=== PATIENT | male | born 1980 | race Caucasian/White ===

== ENCOUNTER 2021-12-20 07:11 | Day surgery (SDC) | payer BC ==
[~2021-12-20] VITALS: Ht 170.2 cm; Wt 81.6 kg
[~2021-12-20 07:11] MED LIST: CEFAZOLIN SOD 2 GM in D5W 50 ML IV ONE
[2021-12-20] MEDS ORDERED: ONDANSETRON HCL 4 MG/2 ML VIAL IVP PRN ×2 (10:15→10:45)
[2021-12-20] MEDS ORDERED: MORPHINE 4 MG INJ. 4 MG/ML VIAL IVP PRN ×3 (10:15)
[2021-12-20] MEDS ORDERED: MEPERIDINE HCL/PF 25 MG/ML DISP.SYRIN IVP PRN (10:15)
[2021-12-20] MEDS ORDERED: METOCLOPRAMIDE HCL 10 MG/2 ML VIAL IVP PRN (10:15)
[2021-12-20] MEDS ORDERED: LR 1,000 ML IV.SOLN IV ONE (10:34)
[2021-12-20] MEDS ORDERED: ePHEDrine sulfate 50 MG/ML VIAL ONE (10:34)
[2021-12-20] MEDS ORDERED: NS 1000 ML IV.SOLN IV ONE (10:34)
[2021-12-20] MEDS ORDERED: GLYCOPYRROLATE 0.2 MG/ML VIAL ONE (10:34)
[2021-12-20] MEDS ORDERED: ROCURONIUM BROMIDE 10 MG/ML (ZEMURON) ONE (10:34)
[2021-12-20] MEDS ORDERED: PROPOFOL 200MG/ 20ML VIAL (DIPRIVAN) IV ONE (10:34)
[2021-12-20] MEDS ORDERED: fentaNYL CITRATE/PF 100 MCG/2 ML AMP ONE (10:34)
[2021-12-20] MEDS ORDERED: PHENYLEPHRINE HCL 10 MG/ML VIAL (NEOSYNEPHRINE) ONE (10:34)
[2021-12-20] MEDS ORDERED: MIDAZOLAM HCL 5 MG/ML VIAL (VERSED) IV ONE (10:34)
[2021-12-20] MEDS ORDERED: DEXAMETHASONE SOD PHOSPHATE 4 MG/ML VIAL ONE (10:34)
[2021-12-20] MEDS ORDERED: SEVOFLURANE 15 MIN GAS INH ONE (10:34)
[2021-12-20] MEDS ORDERED: ONDANSETRON HCL 4 MG/2 ML VIAL ONE (10:34)
[2021-12-20] MEDS ORDERED: ONDANSETRON 4 MG ODT TAB PO PRN (10:45)
[2021-12-20] MEDS ORDERED: ACETAMINOPHEN 500 MG TABLET PO PRN (10:45)
[2021-12-20] MEDS ORDERED: HYDROcodone/ACETAMIN 5-325 MG TAB (NORCO/ VICODIN) PO PRN (10:45)
[2021-12-20 13:24] VITALS: BP_SYST 122
== END 2021-12-20 13:10 | disposition home or self-care (01) ==
LOC: SMU 07:11 → SDS 07:11
PROVIDERS: ATTEND Otolaryngology
DX: J34.2 Deviated nasal septum (principal); J34.3 Hypertrophy of nasal turbinates; E78.5 Hyperlipidemia, unspecified; N18.9 Chronic kidney disease, unspecified; Z20.822 Contact with and (suspected) exposure to COVID-19; Z79.899 Other long term (current) drug therapy
CPT/HCPCS: 30140; 30520; 36415 ×2; 87426; 87635; J0690; J1100; J2250; J2370; J2405; J2704; J3010; J3490; J7030; J7060; J7120; U0003